=== PATIENT | male | born 1945 | race Caucasian/White ===

== ENCOUNTER 2016-03-24 08:49 | Emergency (ER) | payer OTHER ==
[2016-03-24 08:59] VITALS: BP 149/94; PULSE 97; TEMP 97.9; BMI 30.1
--- NOTE | 2016-03-24 10:33 | PDOC ---
History of Present Illness - General Chief Complaint: Foreign Body (FB) Stated Complaint: FOREIGN BODY IN RT EAR Time Seen by Provider: 03/24/16 09:25 History Source: Patient Exam Limitations: No Limitations - History of Present Illness Initial Comments: 03/24/16 10:29 Patient here with complaints of foreign body to his right ear. States uses Q- tips to clean and thinks may have a Q-tip and caught his ear. Denies fever, denies drainage Timing/Duration: unsure Severity: mild Associated Symptoms: reports: denies symptoms Past History - Travel Traveled outside of the country in the last 30 days: No Close contact w/someone who was outside of country & ill: No - Past Medical History Allergies/Adverse Reactions: Allergies Allergy/AdvReac Type Severity Reaction Status Date / Time penicillin G Allergy Intermediate Verified 03/24/16 08:59 Home Medications: Ambulatory Orders Quinapril HCl [Accupril -] 20 mg PO DAILY #7 tablet 06/15/13 Albuterol Sulfate Inhaler - [Ventolin HFA Inhaler -] 1 - 2 inh PO QID 08/03/14 Diltiazem Cd [Cardizem Cd -] 180 mg PO DAILY 08/03/14 Glipizide [Glipizide ER] 2.5 mg PO DAILY 08/03/14 Anemia: No Asthma: No Cancer: No Cardiac Disorders: No CVA: No COPD: Yes CHF: No Dementia: No Diabetes: No GI Disorders: No Disorders: No HTN: Yes Hypercholesterolemia: No Liver Disease: No Seizures: No Thyroid Disease: No - Surgical History Abdominal Surgery: No Appendectomy: No Cardiac Surgery: No Cholecystectomy: No Lung Surgery: No Orthopedic Surgery: No - Psycho/Social/Smoking Cessation Hx Anxiety: No Suicidal Ideation: No Smoking History: Current every day smoker Have you smoked in the past 12 months: Yes Number of Cigarettes Smoked Daily: 5 Information on smoking cessation initiated: No Hx Alcohol Use: Yes (4 BEERS A MONTH) Drug/Substance Use Hx: No Substance Use Type: Alcohol Hx Substance Use Treatment: No Review of Systems - Review of Systems Able to Perform ROS?: Yes Is the patient limited Nepali proficient: Yes Constitutional: Yes: See HPI. No: Symptoms Reported, Fever, Malaise HEENTM: Yes: Symptoms Reported, See HPI, Ear Pain (hearing loss ) Respiratory: Yes: See HPI. No: Symptoms reported All Other Systems: Reviewed and Negative *Physical Exam - Vital Signs Last Vital Signs Temp Pulse Resp BP Pulse Ox 97.9 F 97 H 16 149/94 95 03/24/16 08:55 03/24/16 08:55 03/24/16 08:55 03/24/16 08:55 03/24/16 08:55 - Physical Exam General Appearance: Yes: Nourished, Appropriately Dressed, Apparent Distress, Mild Distress HEENT: positive: AMIE. negative: TMs Normal (unable to visualize secondary to bilateral impaction of cerumen) Neck: positive: Supple. negative: Tender, Lymphadenopathy (R), Lymphadenopathy (L) Respiratory/Chest: positive: Lungs Clear, Normal Breath Sounds Cardiovascular: positive: Regular Rate Extremity: positive: Normal Capillary Refill, Normal Inspection Integumentary: positive: Normal Color, Dry, Warm Neurologic: positive: high school foreign language tutor II-XII NML intact, Fully Oriented, Alert, Normal Mood/ Affect, Normal Response, Motor Strength 5/5 Procedures - Additional Procedures Additional Procedures: lavage - initial (bilateral ears irrigated with warm saline with good results of large hard cerumen impaction withdrawal.) Medical Decision Making - Medical Decision Making 03/24/16 10:32 Ceruminosis, encourage patient to follow-up with ENT for definitive treatment and to avoid using Q-tips in ears *DC/Admit/Observation/Transfer Diagnosis at time of Disposition: Impacted cerumen of both ears - Discharge Dispostion Disposition: HOME Condition at time of disposition: Stable Admit: No - Referrals Referrals: Jayant Wells MD [Primary Care Provider] - Daniel James MD [Staff Physician] - - Patient Instructions Printed Discharge Instructions: Cerumen Impaction Additional Instructions: Do not use Q-tips, or any other small objects on the inner aspect of the ear canal - may only use Q-tips only on the outside to clean ears Ear wax may be packed by use of Q-tips to the inner canal and become hardened May use hydrogen peroxide 3 times a week to continued keep ear wax soft and able to expel Rinse in shower after hydrogen peroxide instillation to wash ear wax out Reae-lqx-veaznwh preparations also assist in wax buildup Aloe up with private physician or ear nose and throat doctor as needed
== END 2016-03-24 10:43 | disposition home or self-care (01) ==
LOC: JERFT 08:49
PROC: 3E1B78Z Irrigation of Ear using Irrigating Substance, Via Natural or Artificial Opening (ICD-10-PCS; principal; 2016-03-24)
PROC: 3E1B78Z Irrigation of Ear using Irrigating Substance, Via Natural or Artificial Opening (ICD-10-PCS; 2016-03-24)
DX: H61.23 Impacted cerumen, bilateral (principal); J44.9 Chronic obstructive pulmonary disease, unspecified; F17.210 Nicotine dependence, cigarettes, uncomplicated; I10 Essential (primary) hypertension
CPT/HCPCS: 69209; 99281-25

== ENCOUNTER 2016-11-22 13:57 | Observation (INO) | payer OTHER ==
--- NOTE | 2016-11-22 14:07 | PDOC ---
History of Present Illness - General Stated Complaint: ALCOHOL INTOXICATION Time Seen by Provider: 11/22/16 14:05 History Source: Patient - History of Present Illness Initial Comments: 11/22/16 14:43 HPI is obtained from EMS, patient's friend who was with him at time of incident and as well as staff at [facility] Patient is a 71 y.o. male who presents via EMS following an incident of unresponsiveness in a [employer] bar. As per patient he last recalls having a beer at the bar earlier today. As per patient's friend, patient was "off" today as of 10:30 a.m. - not as energetic or engaging conversation. Patient and patient's friend went to a bar when patient started to suddenly become incoherent, mumbling and grumbling and not responding. Patient then became unresponsive, slumping over in his chair and was unresponsive to gentle slapping and shaking. As per patient's friend and barrel builder, at no time did patient hit his head. Past History - Past Medical History Allergies/Adverse Reactions: Allergies Allergy/AdvReac Type Severity Reaction Status Date / Time penicillin G Allergy Intermediate Verified 03/24/16 08:59 Home Medications: Ambulatory Orders Quinapril HCl [Accupril -] 20 mg PO DAILY #7 tablet 06/15/13 Diltiazem Cd [Cardizem Cd -] 240 mg PO DAILY 08/03/14 Glipizide [Glipizide ER] 5 mg PO DAILY 08/03/14 Anemia: No Asthma: No Cancer: No Cardiac Disorders: No CVA: No COPD: Yes CHF: No Dementia: No Diabetes: No GI Disorders: No Disorders: No HTN: Yes Hypercholesterolemia: No Liver Disease: No Seizures: No Thyroid Disease: No - Surgical History Abdominal Surgery: No Appendectomy: No Cardiac Surgery: No Cholecystectomy: No Lung Surgery: No Orthopedic Surgery: No - Suicide/Smoking/Psychosocial Hx Smoking History: Current every day smoker Have you smoked in the past 12 months: Yes Number of Cigarettes Smoked Daily: 5 Hx Alcohol Use: Yes (4 BEERS A MONTH) Drug/Substance Use Hx: No Substance Use Type: Alcohol Hx Substance Use Treatment: No Review of Systems - Review of Systems Constitutional: Yes: Diaphoresis HEENTM: No: Blurred Vision, Double Vision Respiratory: No: Cough, Shortness of Breath Cardiac (ROS): No: Chest Pain, Edema, Irregular Heart Rate, Lightheadedness, Palpitations ABD/GI: No: Constipated, Diarrhea, Nausea, Vomiting : No: Burning, Dysuria *Physical Exam - Physical Exam General Appearance: Yes: Nourished, Appropriately Dressed HEENT: positive: EOMI, AMIE Neck: positive: Trachea midline, Supple Respiratory/Chest: positive: Lungs Clear, Normal Breath Sounds, Other (During course of admission, patient intermittently hypoxic to 88%, patient ) Cardiovascular: positive: Regular Rhythm, Regular Rate, S1, S2 Gastrointestinal/Abdominal: positive: Soft, Protuberent Musculoskeletal: positive: Normal Inspection Extremity: positive: Delayed Capillary Refill Integumentary: positive: Diaphoresis ED Treatment Course - LABORATORY CBC & Chemistry Diagram: 11/23/16 05:10 11/23/16 05:10 Medical Decision Making - Medical Decision Making 11/22/16 16:05 Patient is a 71 y.o. male with a h/o NIDDM on sulfonylureas (Glipizide) who presents with acute episode of hypoglycemia (BS 30's @ presentation). PLAN: 1. D50 x2 2. Encourage PO intake 11/22/16 18:16 Patient's BS dropped acutely to 21 during course of ED admission. Concern for sulfonyureas toxicity though patient denies non-adherence to medication and per HPI appears to have a full understanding of his medication regimen and understand the importance of glucose control. D50 x2 administered as well as Octeotride for possible Glipizide overdose. 11/22/16 17:29 Patient's BS 120's --> low 200's as per fingerstick. Patient to be admitted to obs under [employer] - confirmed with nursing lead refinery supervisor that patient will recieve BS checks Q2H. *DC/Admit/Observation/Transfer Diagnosis at time of Disposition: Hypoglycemia associated with diabetes - Discharge Dispostion Condition at time of disposition: Good Admit: Yes
[2016-11-22 14:31] LABS: BASOPHIL 0.8 % (0-2.0); EOSINOPHIL 1.3 % (0-4.5); MCH 28.7 pg (25.7-33.7); MCHC 31.9 g/dl (32.0-35.9); NEUTROPHILS 71.9 % (42.8-82.8); PLATELET COUNT 334 K/MM3 (134-434); RDW 15.1 % (11.9-15.9); WHITE BLOOD COUNT 17.1 K/mm3 (4.0-10.0)
[2016-11-22 14:59] LABS: ALBUMIN 3.3 g/dl (3.4-5.0); ALK PHOS 66 U/L (45-117); ANION GAP 10 (8-16); BILIRUBIN,TOTAL 0.2 mg/dL (0.2-1.0); CALCIUM 8.8 mg/dL (8.5-10.1); CO2 27 mmol/L (21-32); GLUCOSE,RANDOM 127 mg/dL (74-106); MAGNESIUM 2.4 mg/dL (1.8-2.4); SGOT/AST 21 U/L (15-37); SGPT/ALT 21 U/L (12-78); TOT PROT 6.8 g/dl (6.4-8.2)
[2016-11-22] MEDS ORDERED: DEXTROSE 50%-WATER 25 GM/50 ML DISP.SYRIN ONE (15:17)
[2016-11-22] MEDS ORDERED: OCTREOTIDE ACETATE 50 MCG/1 ML - 1 ML VIAL SQ ONE (15:20)
[2016-11-22] MEDS ORDERED: OCTREOTIDE ACETATE 100 MCG/1 ML ONE (15:24)
--- NOTE | 2016-11-22 16:51 | PDOC ---
Attending Attestation - Resident Resident Name: Carol Busch - ED Attending Attestation I have performed the following: I have examined & evaluated the patient, The case was reviewed & discussed with the resident, I agree w/resident's findings & plan, Exceptions are as noted - HPI HPI: 11/22/16 16:44 71-year-old male history of hypertension and mos-lwsaiqy-dvvephejn diabetes presents with altered mental status. Patient initially minimally responsive, fingerstick found to be 28. The patient was given 2 Amps of D50 and quickly woke up, responsive AOx3. Per friends at the bar, pt drank 2 beers and began becoming slow to respond and diaphoretic. He did not fall, and they supported him until EMS brought him to the ED. The patient reports that he takes glipizide and took his usual dose of 5 mg this morning. He also reports that he ate a romero egg and cheese per usual this morning. He denies any issues with hypoglycemia in the past. He denies fevers, chills, chest pain, shortness of breath, nausea, vomiting, diarrhea, abdominal pain, lower extremity edema, focal weakness or numbness, headache. - Physicial Exam PE: 11/22/16 17:28 GENERAL: Awake, alert, and fully oriented, in no acute distress, diaphoretic HEAD: No signs of trauma EYES: PERRLA, EOMI, sclera anicteric, conjunctiva clear ENT: Auricles normal inspection, hearing grossly normal, nares patent, oropharynx clear without exudates. Moist mucosa NECK: Normal ROM, supple, no lymphadenopathy, JVD, or masses LUNGS: Breath sounds equal, clear to auscultation bilaterally. No wheezes, and no crackles HEART: Regular rate and rhythm, normal S1 and S2, no murmurs, rubs or gallops ABDOMEN: Soft, nontender, normoactive bowel sounds. No guarding, no rebound. No masses EXTREMITIES: Normal range of motion, no edema. No clubbing or cyanosis. No cords, erythema, or tenderness BACK: No midline spinal tenderness in cervical/thoracic/lumbar region NEUROLOGICAL: Normal speech, cranial nerves intact, negative pronator drift, 5/ 5 strength in all 4 extremities, normal sensation to light touch in all 4 extremities, normal cerebellar exam, normal gait, normal reflexes and tone SKIN: Warm, Dry, normal turgor, no rashes or lesions noted. - Medical Decision Making 11/22/16 17:29 71yo M hx NIDDM on glipizide who presents with hypoglycemia despite eating breakfast this morning. Pt reports that he took his usual dose and ate his usual breakfast. He does admit to drinking a few beers at the bar. It is unclear why the patient is dropping his blood sugar despite taking his usual dose and eating, but it is possible in the setting of drinking at the bar that he may have accidentally taken an extra dose of his medication. Despite getting 2 amps of D50 on arrival, pt dropped his glucose to 21 after 1 hour. Pt ordered for another amp of D50, a D10 drip and 75mcg of SQ octreotide. -admit, consider ICU -labs -UA -CXR 11/22/16 17:13 Pt signed out to oncoming attending Dr. Samuel for further management
[2016-11-22] MEDS ORDERED: DEXTROSE 50%-WATER - 25 GM/50 ML VIAL IVPUSH ONE ×4 (18:47→18:56)
[2016-11-22] MEDS ORDERED: DEXTROSE 5%-NORMAL SALINE 500 ML IV ONE (18:58)
--- NOTE | 2016-11-22 20:18 | HP ---
Admitting History and Physical - Admission Chief Complaint: syncope History of Present Illness: 71 yo m with hx of htn, dm, hlp, copd, who presents to the ER after having episode of syncope in a bar. patient's states he was sitting at bar when he suddenly became diaphoretic and passed out. he reports that he passed out on the bar table and did not hit his head. EMS arrived and administered 2 amps of D50 after he was found to have a bgm of 21. He reports finally regaining his mentation in the ER. He reports he had an episode of low bgm this past at his doctors office but unsure how low it was. He was given sugar tablets and instructed to eat regularly by his PCP to avoid low sugars. At that time he did not pass out or become diaphoretic. He reports he has been taking glipizide 5mg for several months and has never passed out before. He reports before todays episode he was in his usual state of health. He denies any sob, cp, heart palps , numbness. he denies dysuria, n/v/d/f/c. He denies earache, sore throat, cough. He denies any heart trouble, or h/o stroke. social- drinks 2-3 x week, 2pack cig per week. denies rec drugs famhx- dad asthma. mom healthy psh/pmh- copd, htn, dm, hlp PCP- Dr collier at [facility] ros neg except for hpi Pex gen- in nad, alert, obese hent- at/nc, migdalia, neck supple, trachea midline, no tongue fasiculations resp- no cough, no cyanosis, no ronchi, lungs ctab cards- rrr, s1s2 heard, no jvd, no leg edema, no carotid bruits gi- protuberant abd, bs +, no guarding, no rigidity, no pulsatile mass musk- normal bue/ble, muscle strength 5/5 bue/ble neuro- cn2-12 grossly intact, no ftn ataxia, dysdiadochokinesia, no facial droop , speech clear skin- no erythema, no lesions psych- cooperative, no agitation prob list hypoglycemia syncope htn copd leukocytosis dm hypokalemia AMS imaging ekg- rbbb, nsr, a/p- 71 yo m with hx of htn, dm, hlp, copd, who presents to the ER after having episode of syncope in a bar and found to be hypoglycemic in the field. 1. syncope/ AMS, ? hypoglcyemia ddx: cva/tia, arrhythmia, acs found to be hypoglycemic in the field no neuro deficits on exam f/u cth, ekg, trops, tsh neuro checks orthostatic vitals cont D5 IV 2. dm, hypoglycemia found to have bgm 21, given 2amps of d50 in the field Given Octreotide 75mcg sq, and 4amps d50 IV in the ER will hold Glipizide cont D5 ns 83cc/hr IV monitor bgm 3. Leukocytosis ? infection v stress reaction Monitor CBC Fu urine cx Cxr appears clear by my eye 4. htn cont home meds 5. copd no ronchi on exam duonebs prn 6. 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, maxillary mucous thickening, no bleeding will consult neuro, cards add aspirin check lipids, a1c, homocysteine, echo add doxy for ?sinusitis given elevated wbc count History Source: Patient, Medical Record Limitations to Obtaining History: No Limitations - Smoking History Smoking history: Current every day smoker Have you smoked in the past 12 months: Yes Aproximately how many cigarettes per day: 5 - Alcohol/Substance Use Hx Alcohol Use: Yes (4 BEERS A MONTH) Home Medications - Allergies Allergies/Adverse Reactions: Allergies Allergy/AdvReac Type Severity Reaction Status Date / Time penicillin G Allergy Intermediate Verified 03/24/16 08:59 - Home Medications Home Medications: Ambulatory Orders Quinapril HCl [Accupril -] 20 mg PO DAILY #7 tablet 06/15/13 Diltiazem Cd [Cardizem Cd -] 240 mg PO DAILY 08/03/14 Glipizide [Glipizide ER] 5 mg PO DAILY 08/03/14 Physical Examination Vital Signs: Vital Signs Temperature 95.5 F L 11/22/16 14:00 Pulse Rate 86 11/22/16 18:58 Respiratory Rate 20 11/22/16 18:58 Blood Pressure 150/89 11/22/16 18:58 O2 Sat by Pulse Oximetry (%) 100 11/22/16 18:58 Visit type - Emergency Visit Emergency Visit: Yes ED Registration Date: 11/22/16 Care time: The patient presented to the Emergency Department on the above date and was hospitalized for further evaluation of their emergent condition. - New Patient This patient is new to me today: Yes Date on this admission: 11/23/16 - Critical Care Critical Care patient: No
[2016-11-22] MEDS ORDERED: ALBUTEROL SO4 2.5/IPRATROPIUM 0.5 INH SOL 3 ML VIAL.NEB. NEB PRN (20:38)
[2016-11-22] MEDS ORDERED: POTASSIUM CHLORIDE TABS 20 MEQ TABLET.ER (FP) PO ONE (20:39)
[2016-11-22 21:28] VITALS: BMI 29.9
[2016-11-22] MEDS: HEPARIN NA (PORCINE) 5,000 UNITS/ML 1ML VIAL SQ SCH (21:46)
[2016-11-22] MEDS: DEXTROSE 5%-0.45% SALINE 1,000 ML IV SCH (21:50)
[2016-11-23] MEDS ORDERED: ACETAMINOPHEN 325 MG TABLET (FP) PO PRN (03:03)
[2016-11-23] MEDS ORDERED: ONDANSETRON 4 MG/2 ML VIAL IVPB PRN (03:03)
[2016-11-23] MEDS: HEPARIN NA (PORCINE) 5,000 UNITS/ML 1ML VIAL SQ SCH ×3 (06:13→22:25)
[2016-11-23 07:04] LABS: ANION GAP 8 (8-16); CALCIUM 8.7 mg/dL (8.5-10.1); CO2 26 mmol/L (21-32); GLUCOSE,RANDOM 101 mg/dL (74-106)
[2016-11-23 07:10] LABS: ALK PHOS 65 U/L (45-117); BILIRUBIN,TOTAL 0.5 mg/dL (0.2-1.0); CHOLESTEROL 146 mg/dL (50-200); CREATININE 0.8 mg/dL (0.7-1.3); SGOT/AST 18 U/L (15-37); SGPT/ALT 19 U/L (12-78); TOT PROT 6.3 g/dl (6.4-8.2); TROPONIN I < 0.02 ng/ml (0.00-0.05)
[2016-11-23 07:23] LABS: BASOPHIL 0.6 % (0-2.0); EOSINOPHIL 2.7 % (0-4.5); MCH 29.2 pg (25.7-33.7); MCHC 32.4 g/dl (32.0-35.9); MEAN CELL VOLUME 89.9 fl (80-96); MEAN PLT VOLUME 9.3 fl (7.5-11.1); NEUTROPHILS 77.1 % (42.8-82.8); PLATELET COUNT 268 K/MM3 (134-434); RDW 15.6 % (11.9-15.9); WHITE BLOOD COUNT 10.6 K/mm3 (4.0-10.0)
[2016-11-23] MEDS: QUINAPRIL HCL 20 MG TABLET (FP) PO SCH (09:13)
[2016-11-23] MEDS: DOXYCYCLINE HYCLATE 100 MG CAPSULE PO SCH ×2 (09:13→17:37)
[2016-11-23] MEDS: ASPIRIN COATED 81 MG TABLET.EC PO SCH (09:13)
[2016-11-23] MEDS: DEXTROSE 5%-0.45% SALINE 1,000 ML IV SCH (09:15)
[2016-11-23 10:12] LABS: URINE APPEARANCE CLEAR; URINE BILIRUBIN NEGATIVE (NEGATIVE); URINE BLOOD NEGATIVE (NEGATIVE); URINE COLOR YELLOW; URINE GLUCOSE (UA) 1+ (NEGATIVE); URINE KETONE NEGATIVE (NEGATIVE); URINE NITRITE NEGATIVE (NEGATIVE); URINE PROTEIN NEGATIVE (NEGATIVE); URINE UROBILINOGEN NEGATIVE mg/dL (0.2-1.0)
--- NOTE | 2016-11-23 11:23 | CON.CARD ---
Cardiology Consult (text) - Consultation Consultation Note: Informed that he is a patient of Dr. Martin. Consult transferred over to his cardiology group.
[2016-11-23 15:12] LABS: URINE LEUK ESTERASE Negative (NEGATIVE)
--- NOTE | 2016-11-23 16:11 | EKG ---
Test Reason : Blood Pressure : / mmHG Vent. Rate : 073 BPM Atrial Rate : 073 BPM P-R Int : 200 ms QRS Dur : 150 ms QT Int : 440 ms P-R-T Axes : -03 -01 030 degrees QTc Int : 484 ms NORMAL SINUS RHYTHM BASELINE ARTIFACT RIGHT BUNDLE BRANCH BLOCK CANNOT RULE OUT INFERIOR INFARCT (CITED ON OR BEFORE 14-JUN-2013) ABNORMAL ECG WHEN COMPARED WITH ECG OF 14-JUN-2013 12:24, QRS AXIS SHIFTED RIGHT AND MAY REFLECT LEFT POSTERIOR HEMIBLOCK CLINICAL CORRELATION IS RECOMMENDED Confirmed by ANA BIGGS MD ([id number]) on 11/23/2016 4:10:52 PM Referred By: Confirmed By:ANA BIGGS MD
--- NOTE | 2016-11-23 16:12 | PN ---
Physical Exam: SUBJECTIVE: Patient seen and examined. He is feeling well today. He has never had a syncopal episode like this before. He denies regular alcohol use OBJECTIVE: Vital Signs Period Temp Pulse Resp BP Sys/Jay Pulse Ox Last 24 Hr 97.0 F-98.6 F 70-90 18-20 130-160/65-104 96-100 PE Neuro: alert, awake, cn 2-12intact Pulm: CTAB CV: s1 s2 rrr no mrg Abd: s nt nd +bs Ext: warm, no le edema Laboratory Results - last 24 hr 11/23/16 11/23/16 11/23/16 04:41 05:10 05:10 WBC 10.6 H D RBC 4.76 Hgb 13.9 Hct 42.7 MCV 89.9 MCH 29.2 MCHC 32.4 RDW 15.6 Plt Count 268 MPV 9.3 Neutrophils % 77.1 Lymphocytes % 10.6 D Monocytes % 9.0 Eosinophils % 2.7 D Basophils % 0.6 Sodium Potassium Chloride Carbon Dioxide Anion Gap BUN Creatinine Creat Clearance w eGFR POC Glucometer 118 Random Glucose Hemoglobin A1c % Lactic Acid 1.1 Calcium Total Bilirubin AST ALT Alkaline Phosphatase Troponin I Total Protein Albumin Triglycerides Cholesterol Total LDL Cholesterol HDL Cholesterol TSH Urine Color Urine Appearance Urine pH Ur Specific [place] Urine Protein Urine Glucose (UA) Urine Ketones Urine Blood Urine Nitrite Urine Bilirubin Urine Urobilinogen Ur Leukocyte Esterase 11/23/16 11/23/16 11/23/16 05:10 05:10 05:10 WBC RBC Hgb Hct MCV MCH MCHC RDW Plt Count MPV Neutrophils % Lymphocytes % Monocytes % Eosinophils % Basophils % Sodium 141 Potassium 4.5 D Chloride 107 Carbon Dioxide 26 Anion Gap 8 BUN 15 D Creatinine 0.8 Creat Clearance w eGFR > 60 POC Glucometer Random Glucose 101 D Hemoglobin A1c % Lactic Acid Calcium 8.7 Total Bilirubin 0.5 D AST 18 ALT 19 Alkaline Phosphatase 65 Troponin I < 0.02 Cancelled Total Protein 6.3 L Albumin 3.0 L Triglycerides 118 Cancelled Cholesterol 146 Cancelled Total LDL Cholesterol 78 Cancelled HDL Cholesterol 55 Cancelled TSH Urine Color Urine Appearance Urine pH Ur Specific [place] Urine Protein Urine Glucose (UA) Urine Ketones Urine Blood Urine Nitrite Urine Bilirubin Urine Urobilinogen Ur Leukocyte Esterase 11/22/16 11/23/16 20:45 05:10 Hemoglobin A1c % 5.7 TSH 0.27 L Active Medications Generic Name Dose Route Start Last Admin Trade Name Freq PRN Reason Stop Dose Admin Acetaminophen 650 mg 11/23/16 03:03 Tylenol - PO Q4H PRN FEVER OR PAIN Albuterol/Ipratropium 1 amp 11/22/16 20:38 Duoneb - NEB Q4H PRN SHORTNESS OF BREATH Aspirin 81 mg 11/23/16 10:00 11/23/16 09:13 Ecotrin - PO 81 mg DAILY JUAN A Administration Diltiazem HCl 240 mg 11/23/16 10:00 11/23/16 09:13 Cardizem Cd - PO 240 mg DAILY JUAN A Administration Doxycycline Hyclate 100 mg 11/23/16 10:00 11/23/16 09:13 Vibramycin - PO 11/29/16 23:59 100 mg BID@1000,1800 JUAN A Administration Heparin Sodium (Porcine) 5,000 unit 11/22/16 22:00 11/23/16 14:16 Heparin - SQ Not Given TID JUAN A Dextrose/Sodium Chloride 1,000 mls @ 83 mls/hr 11/22/16 20:45 11/23/16 09:15 D5-1/2ns - IV 83 mls/hr ASDIR JUAN A Administration Ondansetron HCl 4 mg 11/23/16 03:03 Zofran Injection IVPB Q8H PRN NAUSEA Quinapril HCl 20 mg 11/23/16 10:00 11/23/16 09:13 Accupril - PO 20 mg DAILY JUAN A Administration Assessment: 71 year old male with hx of HTN, DM II, COPD, who presents to the ER after having episode of syncope in a bar and found to be hypoglycemic 1. Syncope - Likely due to hypoglycemia d/t medication increase - ECHO in am - Cardiology to see - Neuro consulted 2. Hypoglycemia - Resolved - Stop fluids - Would resume glipizide at 2.5mg dose, hold for now 3. Leukocytosis - Possible infection v stress reaction - WBC down trending - Urine cx pending 4. HTN - Continue Quinapril 20mg - Continue Diltiazem HCl 240mg daily 5. Sinususitis - Mild-mod on CT - Continue Doxy Visit type - Emergency Visit Emergency Visit: Yes ED Registration Date: 11/22/16 Care time: The patient presented to the Emergency Department on the above date and was hospitalized for further evaluation of their emergent condition. - New Patient This patient is new to me today: Yes Date on this admission: 11/25/16 - Critical Care Critical Care patient: No
[2016-11-24] MEDS: HEPARIN NA (PORCINE) 5,000 UNITS/ML 1ML VIAL SQ SCH ×3 (05:05→21:41)
[2016-11-24 06:48] LABS: EOSINOPHIL 5.8 % (0-4.5); MCHC 32.2 g/dl (32.0-35.9); MEAN CELL VOLUME 89.9 fl (80-96); MEAN PLT VOLUME 9.5 fl (7.5-11.1); NEUTROPHILS 58.8 % (42.8-82.8); PLATELET COUNT 247 K/MM3 (134-434); RDW 15.2 % (11.9-15.9); WHITE BLOOD COUNT 7.9 K/mm3 (4.0-10.0)
[2016-11-24] MEDS: QUINAPRIL HCL 20 MG TABLET (FP) PO SCH (09:24)
[2016-11-24] MEDS: ASPIRIN COATED 81 MG TABLET.EC PO SCH (09:25)
[2016-11-24] MEDS: DOXYCYCLINE HYCLATE 100 MG CAPSULE PO SCH ×2 (09:25→17:48)
--- NOTE | 2016-11-24 10:55 | CON.CARD ---
Consult Consult Specialty:: Cardiology Referred by:: Hospitalist service Reason for Consultation:: Cardiac evaluation - History of Present Illness Chief Complaint: Syncope History of Present Illness: Patient is a 71 year old male previously seen by me in the office with underlying history of type 2 diabetes mellitus and hypertension who presents after a syncopal episode. He states that his diabetes medication was increased recently and this time he was at a bar drinking beer when he passed out and was found to be hypoglycemic. He denies chest pain, shortness of breath or palpitations. He denies paroxysmal nocturnal dyspnea or orthopnea. He denies fever or chills. She denies headache or lightheadedness. He denies prior syncope. Cardiology consultation was called for further evaluation. - History Source History Provided By: Patient Limitations to Obtaining History: No Limitations - Past Medical History Cardio/Vascular: Yes: HTN Endocrine: Yes: Diabetes Mellitus - Past Surgical History Past Surgical History: Yes: None - Alcohol/Substance Use Hx Alcohol Use: Yes (4 BEERS A MONTH) - Smoking History Smoking history: Current every day smoker Have you smoked in the past 12 months: Yes Aproximately how many cigarettes per day: 5 Home Medications - Allergies Allergies/Adverse Reactions: Allergies Allergy/AdvReac Type Severity Reaction Status Date / Time penicillin G Allergy Intermediate Verified 03/24/16 08:59 - Home Medications Home Medications: Ambulatory Orders Quinapril HCl [Accupril -] 20 mg PO DAILY #7 tablet 06/15/13 Diltiazem Cd [Cardizem Cd -] 240 mg PO DAILY 08/03/14 Glipizide [Glipizide ER] 5 mg PO DAILY 08/03/14 Family Disease History - Family Disease History Other Family History: History of HTN Review of Systems - Review of Systems Constitutional: denies: Chills, Fever Cardiovascular: denies: Chest Pain, Palpitations, Shortness of Breath Respiratory: denies: Cough, Hemoptysis, Orthopnea, PND, Snoring, SOB, SOB on Exertion Gastrointestinal: denies: Abdominal Pain, Constipation, Diarrhea, Melena, Nausea , Rectal Bleeding, Vomiting Neurological: denies: Dizziness, Headache, Seizure, Syncope Vital Signs: Vital Signs Temperature 98 F 11/24/16 09:00 Pulse Rate 64 11/24/16 09:00 Respiratory Rate 18 11/24/16 09:00 Blood Pressure 162/100 11/24/16 09:00 O2 Sat by Pulse Oximetry (%) 96 11/24/16 09:00 Neck: Yes: Supple Respiratory: Yes: Regular, CTA Bilaterally Gastrointestinal: Yes: Normal Bowel Sounds, Soft. No: Tenderness Cardiovascular: Yes: Regular Rate and Rhythm JVD: No Carotid Bruit: No PMI: Non-Displaced Heart Sounds: Yes: S1, S2 Murmur: No: Systolic Murmur, Diastolic Murmur Edema: No - Other Data Labs, Other Data: CBC, BMP 11/24/16 06:20 11/23/16 05:10 Laboratory Results - last 24 hr 11/23/16 11/23/16 11/23/16 06:00 11:22 17:40 WBC RBC Hgb Hct MCV MCH MCHC RDW Plt Count MPV Neutrophils % Lymphocytes % Monocytes % Eosinophils % Basophils % POC Glucometer 112 130 Urine Color Yellow Urine Appearance Clear Urine pH 5.0 Ur Specific [place] 1.020 Urine Protein Negative Urine Glucose (UA) 1+ H Urine Ketones Negative Urine Blood Negative Urine Nitrite Negative Urine Bilirubin Negative Urine Urobilinogen Negative Ur Leukocyte Esterase Negative 11/24/16 06:20 WBC 7.9 RBC 4.66 Hgb 13.5 Hct 41.9 MCV 89.9 MCH 29.0 MCHC 32.2 RDW 15.2 Plt Count 247 MPV 9.5 Neutrophils % 58.8 D Lymphocytes % 24.5 D Monocytes % 9.9 Eosinophils % 5.8 H D Basophils % 1.0 POC Glucometer Urine Color Urine Appearance Urine pH Ur Specific [place] Urine Protein Urine Glucose (UA) Urine Ketones Urine Blood Urine Nitrite Urine Bilirubin Urine Urobilinogen Ur Leukocyte Esterase Sinus rhythm with RBBB Echo: Pending Problem List - Problems (1) Hypoglycemia associated with diabetes Code(s): E11.649 - TYPE 2 DIABETES MELLITUS WITH HYPOGLYCEMIA WITHOUT COMA (2) Syncope Code(s): R55 - SYNCOPE AND COLLAPSE Qualifiers: Syncope type: unspecified Qualified Code(s): R55 - Syncope and collapse; R55 - Syncope and collapse (3) HTN (hypertension) Code(s): I10 - ESSENTIAL (PRIMARY) HYPERTENSION Qualifiers: Hypertension type: essential hypertension Qualified Code(s): I10 - Essential (primary) hypertension; I10 - Essential (primary) hypertension; I10 - Essential (primary) hypertension Assessment/Plan 1. Syncope likely due to hypoglycemia 2. History of hypertension 3. Type 2 diabetes mellitus PLAN: 1. Continue current medications including Quinapril and Cardizem 2. Continue ASA 3. Transthoracic echocardiography to assess LV/RV and valvular function 4. Continue titrate diabetic regimen to avoid hypoglycemia 5. With history of smoking and his age, consider aortic ultrasound to rule out aortic aneurysm Further plans are to follow Keshav Martin MD
--- NOTE | 2016-11-24 16:48 | PN ---
Progress Note (short form) - Note Progress Note: Subjective: The patient was seen and examined at the bedside, he reports feeling better today. Awaiting carotid and aorta ultrasound Current Medications Generic Name Dose Route Start Last Admin Trade Name Cathie PRN Reason Stop Dose Admin Acetaminophen 650 mg 11/23/16 03:03 Tylenol - PO Q4H PRN FEVER OR PAIN Albuterol/Ipratropium 1 amp 11/22/16 20:38 Duoneb - NEB Q4H PRN SHORTNESS OF BREATH Aspirin 81 mg 11/23/16 10:00 11/24/16 09:25 Ecotrin - PO 81 mg DAILY JUAN A Administration Diltiazem HCl 240 mg 11/23/16 10:00 11/24/16 09:25 Cardizem Cd - PO 240 mg DAILY JUAN A Administration Doxycycline Hyclate 100 mg 11/23/16 10:00 11/24/16 09:25 Vibramycin - PO 11/29/16 23:59 100 mg BID@1000,1800 JUAN A Administration Heparin Sodium (Porcine) 5,000 unit 11/22/16 22:00 11/24/16 13:06 Heparin - SQ 5,000 unit TID JUAN A Administration Ondansetron HCl 4 mg 11/23/16 03:03 Zofran Injection IVPB Q8H PRN NAUSEA Quinapril HCl 20 mg 11/23/16 10:00 11/24/16 09:24 Accupril - PO 20 mg DAILY JUAN A Administration Objective: Vital Signs Period Temp Pulse Resp BP Sys/Jay Pulse Ox Last 24 Hr 97.5 F-98.9 F 62-80 18-20 139-162/75-100 95-96 Physical Exam: General: NAD, A&Ox3 Lungs: CTA bilaterally Heart: RRR, S1S2 Abd: Soft, non-tender, non-distended. Normoactive bowel sounds Ext: Warm, well-perfused. 2+ DP/PT bilaterally CBCD WBC 7.9 K/mm3 (4.0-10.0) 11/24/16 06:20 RBC 4.66 M/mm3 (4.00-5.60) 11/24/16 06:20 Hgb 13.5 GM/dL (11.7-16.9) 11/24/16 06:20 Hct 41.9 % (35.4-49) 11/24/16 06:20 MCV 89.9 fl (80-96) 11/24/16 06:20 MCHC 32.2 g/dl (32.0-35.9) 11/24/16 06:20 RDW 15.2 % (11.9-15.9) 11/24/16 06:20 Plt Count 247 K/MM3 (134-434) 11/24/16 06:20 MPV 9.5 fl (7.5-11.1) 11/24/16 06:20 CMP Sodium 141 mmol/L (136-145) 11/23/16 05:10 Potassium 4.5 mmol/L (3.5-5.1) D 11/23/16 05:10 Chloride 107 mmol/L (98-107) 11/23/16 05:10 Carbon Dioxide 26 mmol/L (21-32) 11/23/16 05:10 Anion Gap 8 (8-16) 11/23/16 05:10 BUN 15 mg/dL (7-18) D 11/23/16 05:10 Creatinine 0.8 mg/dL (0.7-1.3) 11/23/16 05:10 Creat Clearance w eGFR > 60 (>60) 11/23/16 05:10 Random Glucose 101 mg/dL (74-106) D 11/23/16 05:10 Calcium 8.7 mg/dL (8.5-10.1) 11/23/16 05:10 Total Bilirubin 0.5 mg/dL (0.2-1.0) D 11/23/16 05:10 AST 18 U/L (15-37) 11/23/16 05:10 ALT 19 U/L (12-78) 11/23/16 05:10 Alkaline Phosphatase 65 U/L (45-117) 11/23/16 05:10 Total Protein 6.3 g/dl (6.4-8.2) L 11/23/16 05:10 Albumin 3.0 g/dl (3.4-5.0) L 11/23/16 05:10 CARDIAC ENZYMES Troponin I < 0.02 ng/ml (0.00-0.05) 11/23/16 05:10 Microbiology 11/23/16 06:00 Urine - Urine Clean Catch Urine Culture - Final Assessment: This is a 71 year old male with PMHx of HTN, DMII, COPD, who presented to the ED with syncope and found to have hypoglycemia Plan: 1) Prolonged syncope: - Patient remembers being at bar then here in the hospital - Prolonged arrhythmia vs. seizure, vs. severe hypoglycemia vs. other metabolic abnormality - Patient reports vague prodrome with diaphoresis. Likely 2/2 severe hypoglycemia from recent increase in Glipizide - Hold all oral hypoglycemic agents - Hgb A1c 5.7 - ECHO reviewed - F/u carotid ultrasound - Discussed in depth with Dr. Farah. Given prolonged syncope with vague prodrome, likely syncope from severe hypoglycemia 2) HTN: - Continue Quinapril 20mg - Continue Diltiazem HCl 240mg daily - F/u aorta ultrasound to r/o aneurysm given smoking hx and age 3) Mucosal thickening of left maxillary sinus and ethmoid - Continue Doxy for now - WBC trending down 4) F/E/N: - Diabetic, low sodium diet - Monitor electrolytes 5) Prophylaxis: - OOB ambulating - Heparin 5,000u sq tid 6) Dispo: - Needs aorta ultrasound in which he needs to be NPO for it. Will get it tomorrow morning. NPO after midnight CODE STATUS: FULL CODE Visit type - Emergency Visit Emergency Visit: Yes ED Registration Date: 11/22/16 Care time: The patient presented to the Emergency Department on the above date and was hospitalized for further evaluation of their emergent condition. - New Patient This patient is new to me today: Yes Date on this admission: 11/24/16 - Critical Care Critical Care patient: No
--- NOTE | 2016-11-24 18:30 | CONSULT ---
Consult - text type - Consultation Consultation Note: NEUROLOGY CONSULTATION is greatly appreciated: This 71 yo tony with h/o HTN and diabetes is maintained on Quinipril , glipizide and diltiazem. He relates that glipizide was increased from 2.5 to 5.0 about 3 weeks ago. Last week he had a dizzy spell and noted a Blood glucose of 32 mg %. Yesterday he was drinking beer with a friend when he complained of feeling unwell. Then, he became profusely diaphoretic and lost consciousness. No witnessed seizure. Prolonged LOC as patient Woke up in ER (estimated > 15-20 mins). 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 DANDRE: No bruits, Cor reg. NEURO: MS/speech: normal CN: II-XII: Normal without nystagmus Motor: No drift or tremor. Normal strength, tone, bulk and reflexes. Toes downgoing Coord: Normal Sensory: Normal. Romberg neg Gait: Normal. Sl difficuly with tandem. IMP: Non-focal Neurological exam. Prolonged syncope-most likely due to hy[poglycemia. SUGGEST: Decrease glipizide or restructure hypoglycemic regimen. MRI of brain to investigate the actual degree of microvascular disease and atrophy (can be done as out patient). EEG to r/o seizure (can be done as out patient). Continue telemetry and w/u as per cardiology (to r/o arrhythmia) Thank you very much, Valeriy Farah MD
[2016-11-25] MEDS: HEPARIN NA (PORCINE) 5,000 UNITS/ML 1ML VIAL SQ SCH (06:21)
[2016-11-25 08:39] VITALS: BP 151/94; PULSE 72; TEMP 97.8
--- NOTE | 2016-11-25 09:50 | DS ---
Physical Exam: SUBJECTIVE: Patient seen and examined OBJECTIVE: Vital Signs Period Temp Pulse Resp BP Sys/Jay Pulse Ox Last 24 Hr 97.8 F-98.9 F 64-74 19-20 142-157/72-97 96-96 PE Neuro: alert, awake, cn 2-12intact Pulm: CTAB CV: s1 s2 rrr no mrg Abd: s nt nd +bs Ext: warm, no le edema Laboratory Results - last 24 hr 11/24/16 11/24/16 11/24/16 11:40 15:40 23:35 POC Glucometer 114 111 112 11/25/16 06:25 POC Glucometer 99 HOSPITAL COURSE: Date of Admission:11/22/16 Date of Discharge: 11/25/16 Minutes to complete discharge: 37 Discharge Summary Reason For Visit: N/C HYPOGLYCEMIA Current Active Problems HTN (hypertension) (Acute) Hypoglycemia associated with diabetes (Acute) Syncope (Acute) Hospital Course: Initial Hospital Course: Briefly, this 71 year old male with pmhx of DM II and HTN, after a syncopal episode. Patient was at bar with a friend when he became diaphoretic and passed out. he does not remember awaking until in hospital. BGM was found to be 28 and he was given 2amps D50. Recently, his glipizide was increased recently from 2.5 to 5mg Subsequent Hospital Course/Progress Note/Discharge Summary: Assessment: 71 year old male with PMHx of HTN, DMII, COPD admitted s/p syncope and found to have severe hypoglycemia Plan: 1. Prolonged syncope - Prolonged arrhythmia vs. seizure, vs. severe hypoglycemia - Likely 2/2 severe hypoglycemia from recent increase in Glipizide - Hold all oral hypoglycemic agents until pcp follow up - Hgb A1c 5.7 - ECHO with nml LVSF 2. HTN - Quinapril 20mg - Diltiazem HCl 240mg daily - Aortic US shows mild infrarenal aortic aneurysm 3. Mucosal thickening of left maxillary sinus and ethmoid - Continue Doxy 200mg daily x 5 days total Dispo: - Home with above plan and medications, stop glipizide - Pt aware and agrees to above plan, he is to follow up with pcp and cardiology Condition: Stable - Instructions Diet, Activity, Other Instructions: Please return to the ED for any new, persistent, or worsening symptoms. Follow up with your PCP in 1 week, currently you are scheduled for appt on 01/19 @10am. Take antibiotics for 3 more days Continue home medication as directed Follow up with Dr. Martin in office for review of your aorta ultra sound Referrals: Keshav Martin MD [Staff Physician] - Disposition: HOME - Home Medications Comprehensive Discharge Medication List: Ambulatory Orders Quinapril HCl [Accupril -] 20 mg PO DAILY #7 tablet 06/15/13 Diltiazem Cd [Cardizem Cd -] 240 mg PO DAILY 08/03/14 Doxycycline Hyclate 200 mg PO DAILY #3 tablet. 11/25/16 This patient is new to me today: No Emergency Visit: Yes ED Registration Date: 11/22/16 Care time: The patient presented to the Emergency Department on the above date and was hospitalized for further evaluation of their emergent condition. Critical Care patient: No - Discharge Referral Referred to [facility] No
[2016-11-25] MEDS ORDERED: PT OWN MED DRAWER 7, Y5N ONE (09:52)
[2016-11-25] MEDS: ASPIRIN COATED 81 MG TABLET.EC PO SCH (09:55)
[2016-11-25] MEDS: QUINAPRIL HCL 20 MG TABLET (FP) PO SCH (09:55)
[2016-11-25] MEDS: DOXYCYCLINE HYCLATE 100 MG CAPSULE PO SCH (09:55)
--- NOTE | 2016-11-25 10:18 | PN ---
Progress Note, Physician Chief Complaint: Not in distress History of Present Illness: Patient was seen and examined. Awake and alert. Chart was reviewed Denies chest pain, SOB or palpitations - Current Medication List Current Medications: Active Medications Acetaminophen (Tylenol -) 650 mg PO Q4H PRN PRN Reason: FEVER OR PAIN Albuterol/Ipratropium (Duoneb -) 1 amp NEB Q4H PRN PRN Reason: SHORTNESS OF BREATH Aspirin (Ecotrin -) 81 mg PO DAILY [facility] Last Admin: 11/25/16 09:55 Dose: 81 mg Diltiazem HCl (Cardizem Cd -) 240 mg PO DAILY [facility] Last Admin: 11/25/16 09:54 Dose: 240 mg Doxycycline Hyclate (Vibramycin -) 100 mg PO BID@1000,1800 [facility] Stop: 11/29/16 23:59 Last Admin: 11/25/16 09:55 Dose: 100 mg Heparin Sodium (Porcine) (Heparin -) 5,000 unit SQ TID [facility] Last Admin: 11/25/16 06:21 Dose: 5,000 unit Ondansetron HCl (Zofran Injection) 4 mg IVPB Q8H PRN PRN Reason: NAUSEA Quinapril HCl (Accupril -) 20 mg PO DAILY [facility] Last Admin: 11/25/16 09:55 Dose: 20 mg - Objective Vital Signs: Vital Signs Temperature 97.8 F 11/25/16 08:38 Pulse Rate 72 11/25/16 08:38 Respiratory Rate 20 11/25/16 08:38 Blood Pressure 151/94 11/25/16 08:38 O2 Sat by Pulse Oximetry (%) 96 11/24/16 22:00 Neck: Yes: Supple Cardiovascular: Yes: Regular Rate and Rhythm, S1, S2 Respiratory: Yes: CTA Bilaterally Gastrointestinal: Yes: Normal Bowel Sounds, Soft. No: Tenderness Edema: No Additional Findings/Remarks: - Review of Systems Constitutional: denies: Chills, Fever Cardiovascular: denies: Chest Pain, Palpitations, Shortness of Breath Respiratory: denies: Cough, Hemoptysis, Orthopnea, PND, Snoring, SOB, SOB on Exertion Gastrointestinal: denies: Abdominal Pain, Constipation, Diarrhea, Melena, Nausea , Rectal Bleeding, Vomiting Neurological: denies: Dizziness, Headache, Seizure, Syncope Labs: CBC, BMP 11/24/16 06:20 11/23/16 05:10 Problem List - Problems (1) Hypoglycemia associated with diabetes Code(s): E11.649 - TYPE 2 DIABETES MELLITUS WITH HYPOGLYCEMIA WITHOUT COMA (2) Syncope Code(s): R55 - SYNCOPE AND COLLAPSE Qualifiers: Syncope type: unspecified Qualified Code(s): R55 - Syncope and collapse; R55 - Syncope and collapse (3) HTN (hypertension) Code(s): I10 - ESSENTIAL (PRIMARY) HYPERTENSION Qualifiers: Hypertension type: essential hypertension Qualified Code(s): I10 - Essential (primary) hypertension; I10 - Essential (primary) hypertension; I10 - Essential (primary) hypertension Assessment/Plan 1. Syncope likely due to hypoglycemia 2. History of hypertension 3. Type 2 diabetes mellitus PLAN: 1. Continue current medications including Quinapril and Cardizem 2. Continue ASA 3. Transthoracic echocardiography revealed normal LV systolic function 4. Continue titrate diabetic regimen to avoid hypoglycemia 5. Abdominal US reveals mild infrarenal aortic aneurysm Further plans are to follow. Discharge home and follow up in the office Keshav Martin MD
== END 2016-11-25 10:29 | disposition home or self-care (01) ==
LOC: JER 13:57 → JERBED 18:02 → J4W 19:32
PROVIDERS: ADMIT Internal Medicine; ATTEND Nurse Practitioner Acute Care
PROC: 3E033GC Introduction of Other Therapeutic Substance into Peripheral Vein, Percutaneous Approach (ICD-10-PCS; principal; 2016-11-22)
PROC: 3E0337Z Introduction of Electrolytic and Water Balance Substance into Peripheral Vein, Percutaneous Approach (ICD-10-PCS; 2016-11-22)
PROC: 3E013GC Introduction of Other Therapeutic Substance into Subcutaneous Tissue, Percutaneous Approach (ICD-10-PCS; 2016-11-22)
DX: E11.649 Type 2 diabetes mellitus with hypoglycemia without coma (principal); R55 Syncope and collapse; Z79.84 Long term (current) use of oral hypoglycemic drugs; F17.210 Nicotine dependence, cigarettes, uncomplicated; Z88.0 Allergy status to penicillin; I10 Essential (primary) hypertension; D72.829 Elevated white blood cell count, unspecified; E87.6 Hypokalemia; J44.9 Chronic obstructive pulmonary disease, unspecified; J32.9 Chronic sinusitis, unspecified
CPT/HCPCS: 36415; 70450-TC; 71020-TC; 76775-TC; 80053; 80061; 81003; 82136; 83036; 83605; 83721; 83735; 83918; 84443; 84484; 85025; 87086; 93005; 93010; 93306-TC; 93880-TC; 96361; 96372; 96374; 96375; 99283-25; G0378; J1644

== ENCOUNTER 2018-06-13 05:34 | Emergency (ER) | payer OTHER ==
[2018-06-13 05:45] VITALS: BMI 32.8
--- NOTE | 2018-06-13 07:23 | PDOC ---
Attending Attestation - Resident Resident Name: Yanely Currie - ED Attending Attestation I have performed the following: I have examined & evaluated the patient, The case was reviewed & discussed with the resident, I agree w/resident's findings & plan, Exceptions are as noted - HPI HPI: 73 yo M HTN, COPD, BPH presents with groin pain, dysuria, urinary retention, urge to urinate since last night. No prior similar symptoms. Denies fever. + Prior UTI. - Physicial Exam PE: GENERAL: Awake, alert, and fully oriented. Appears uncomfortable. HEAD: No signs of trauma EYES: PERRLA, EOMI, sclera anicteric, conjunctiva clear ENT: Auricles normal inspection, hearing grossly normal, nares patent, oropharynx clear without exudates. Moist mucosa NECK: Normal ROM, supple, no lymphadenopathy, JVD, or masses LUNGS: Breath sounds equal, clear to auscultation bilaterally. No wheezes, and no crackles HEART: Regular rate and rhythm, normal S1 and S2, no murmurs, rubs or gallops ABDOMEN: Soft, +suprapubic tenderness, bladder distension, normoactive bowel sounds. No guarding, no rebound. No masses EXTREMITIES: Normal range of motion, no edema. No clubbing or cyanosis. No cords, erythema, or tenderness NEUROLOGICAL: Cranial nerves II through XII grossly intact. Normal speech, normal gait. Motor and sensation intact SKIN: Warm, Dry, normal turgor, no rashes or lesions noted. - Medical Decision Making Pt presents with urinary retention, distension noted on initial exam. Reports relief with vick catheter. Will check labs for renal function, as well as UA to r/o infection.
--- NOTE | 2018-06-13 07:38 | PDOC ---
History of Present Illness - General Chief Complaint: Pain, Acute Stated Complaint: GROIN PAIN Time Seen by Provider: 06/13/18 07:19 History Source: Patient Exam Limitations: No Limitations - History of Present Illness Initial Comments: 06/13/18 07:33 73 y/o male with PMH of HTN, COPD, BPH presents to the ED with complaints of sudden onset groin pain and trouble urinating. He had gone out with his frineds last night and had around 6 beers and he got home was watching TV when all of the sudden he started having pains in his right groin area shooting across his suprapubic region. He states that he attempted to go to the bathroom however nothing would not go out. He denies having any systemic symptoms; no fevers/ chills/nausea or vomiting. Of note, he started taking Tamsulosin about one month ago for BPH and his symptoms have been improving. This has never happened to him before. He states the pain was about a 2/10 before he arrived and when he arrived it was around a 4/10. He denies any CP/SOB/N/V fevres or chills. his last bowel movement was this morning and it was normal. 06/13/18 07:47 Timing/Duration: 4-6 hours Severity: moderate Associated Symptoms: denies: chest pain, nausea/vomiting Past History - Travel Traveled outside of the country in the last 30 days: No Close contact w/someone who was outside of country & ill: No - Past Medical History Allergies/Adverse Reactions: Allergies Allergy/AdvReac Type Severity Reaction Status Date / Time penicillin G Allergy Intermediate Verified 06/13/18 05:42 Home Medications: Ambulatory Orders Quinapril HCl [Accupril -] 20 mg PO DAILY #7 tablet 06/15/13 Diltiazem Cd [Cardizem Cd -] 240 mg PO DAILY 08/03/14 Doxycycline Hyclate 200 mg PO DAILY #3 tablet. 11/25/16 Anemia: No Asthma: No Cancer: No Cardiac Disorders: No CVA: No COPD: Yes CHF: No Dementia: No Diabetes: No GI Disorders: No Disorders: No HTN: Yes Hypercholesterolemia: No Liver Disease: No Seizures: No Thyroid Disease: No - Surgical History Abdominal Surgery: No Appendectomy: No Cardiac Surgery: No Cholecystectomy: No Lung Surgery: No Orthopedic Surgery: No - Family Disease History Family Disease History: Diabetes: Father, Heart Disease: Mother - Suicide/Smoking/Psychosocial Hx Smoking History: Never smoked Have you smoked in the past 12 months: No Number of Cigarettes Smoked Daily: 5 Information on smoking cessation initiated: No 'Breaking Loose' booklet given: 11/22/16 Hx Alcohol Use: No Drug/Substance Use Hx: No Substance Use Type: Alcohol Hx Substance Use Treatment: No Review of Systems - Review of Systems Able to Perform ROS?: Yes Is the patient limited Hebrew proficient: No Constitutional: No: Fever HEENTM: No: Blurred Vision Respiratory: No: Shortness of Breath Cardiac (ROS): No: Chest Pain, Palpitations : Yes: Testicular Pain, Other (unable to urinate). No: Burning Musculoskeletal: No: Back Pain Neurological: No: Headache, Numbness *Physical Exam - Vital Signs Last Vital Signs Temp Pulse Resp BP Pulse Ox 98.8 F 117 H 22 H 199/104 H 96 06/13/18 05:39 06/13/18 05:39 06/13/18 05:39 06/13/18 05:39 06/13/18 05:39 - Physical Exam General Appearance: Yes: Mild Distress Neck: positive: Normal Thyroid Respiratory/Chest: positive: Lungs Clear, Normal Breath Sounds Cardiovascular: positive: Regular Rhythm, Regular Rate, S1, S2 Gastrointestinal/Abdominal: positive: Distended, Other (suprapubic tenderness) Male Genitalia: positive: testicular tenderness (slight right testicular tenderness). negative: testicular mass, CVAT Musculoskeletal: negative: CVA Tenderness Neurologic: positive: Fully Oriented, Alert ED Treatment Course - LABORATORY CBC & Chemistry Diagram: 06/13/18 08:12 06/13/18 08:12 - RADIOLOGY Radiology Studies Ordered: Category Date Time Status KIDNEY / RENAL US [US] Stat Ultrasound 06/13/18 07:31 Ordered Medical Decision Making - Medical Decision Making 06/13/18 07:55 cbc/cmp/renal/US vick insert patient improved with vick however no evidence of UTI patient going for CT scan 06/13/18 11:38 *DC/Admit/Observation/Transfer Diagnosis at time of Disposition: BPH (benign prostatic hyperplasia), Urinary problem - Discharge Dispostion Disposition: HOME Condition at time of disposition: Fair - Referrals - Patient Instructions Printed Discharge Instructions: How to Care for Your Vick Catheter -- Male Additional Instructions: Please follow up with your primary care physician within one week We are referring you to a urologist, Dr. See Juan, to follow up with within one week Please keep your vick catheter in place and do not remove it until you see the urologist if you have any worsening or concerning symptom please return to the emergency room immediately - Post Discharge Activity - Attestations Physician Attestion: 06/13/18 12:21 Yanely Currie
[2018-06-13 08:30] LABS: BASO % 0.7 % (0-2.0); EOS % 0.1 % (0-4.5); HEMATOCRIT 45.4 % (35.4-49); HEMOGLOBIN 14.9 GM/dL (11.7-16.9); LYMPH % 5.5 % (8-40); MCH 29.4 pg (25.7-33.7); MCHC 32.9 g/dl (32.0-35.9); MEAN CELL VOLUME 89.4 fl (80-96); MEAN PLT VOLUME 9.1 fl (7.5-11.1); MONO % 5.5 % (3.8-10.2); NEUT % 88.2 % (42.8-82.8); PLATELET COUNT 301 K/MM3 (134-434); RBC 5.08 M/mm3 (4.00-5.60); RDW 14.9 % (11.9-15.9); WHITE BLOOD COUNT 17.3 K/mm3 (4.0-10.0)
[2018-06-13 09:01] LABS: ALBUMIN 4.2 g/dl (3.4-5.0); ALK PHOS 137 U/L (45-117); ANION GAP 11 MMOL/L (8-16); BILIRUBIN,TOTAL 0.9 mg/dL (0.2-1); BLOOD UREA NITROGEN 15 mg/dL (7-18); CALCIUM 9.1 mg/dL (8.5-10.1); CHLORIDE 101 mmol/L (98-107); CO2 21 mmol/L (21-32); CREATININE 0.9 mg/dL (0.55-1.3); GLUCOSE,RANDOM 80 mg/dL (74-106); POTASSIUM 4.3 mmol/L (3.5-5.1); SGOT/AST 38 U/L (15-37); SGPT/ALT 30 U/L (13-61); SODIUM 133 mmol/L (136-145); TOT PROT 7.8 g/dl (6.4-8.2)
[2018-06-13 09:38] LABS: EPI CELLS 0.2 /HPF (0-5/HPF); URINE APPEARANCE CLEAR; URINE BACTERIA 0 /hpf (NEGATIVE); URINE BILIRUBIN NEGATIVE (NEGATIVE); URINE CASTS 1 /lpf (0-8); URINE COLOR YELLOW; URINE GLUCOSE (UA) NEGATIVE (NEGATIVE); URINE KETONE NEGATIVE (NEGATIVE); URINE LEUK ESTERASE NEGATIVE (NEGATIVE); URINE NITRITE NEGATIVE (NEGATIVE); URINE PROTEIN NEGATIVE (NEGATIVE); URINE RBC 2 /hpf (0-4); URINE UROBILINOGEN 0.2 mg/dL (0.2-1.0); URINE WBC 0 /hpf (0-5)
[2018-06-13 13:07] VITALS: BP 160/92; PULSE 92; TEMP 98
== END 2018-06-13 13:06 | disposition home or self-care (01) ==
LOC: JER 05:34
PROC: 0T9B70Z Drainage of Bladder with Drainage Device, Via Natural or Artificial Opening (ICD-10-PCS; principal; 2018-06-13)
DX: N40.1 Benign prostatic hyperplasia with lower urinary tract symptoms (principal); R33.8 Other retention of urine; I10 Essential (primary) hypertension; J44.9 Chronic obstructive pulmonary disease, unspecified; Z88.0 Allergy status to penicillin
CPT/HCPCS: 36415; 51702; 74176-TC; 80053; 81003; 85025; 87086; 99283-25

== ENCOUNTER 2018-10-30 08:45 | Emergency (ER) | payer OTHER ==
[2018-10-30 08:51] VITALS: TEMP 97.8; BMI 30.5
--- NOTE | 2018-10-30 09:16 | PDOC ---
History of Present Illness - General Chief Complaint: Shortness of Breath Stated Complaint: TROUBLE BREATHING Time Seen by Provider: 10/30/18 09:16 History Source: Patient Exam Limitations: No Limitations - History of Present Illness Initial Comments: 73 year old male with PMH HTN, COPD, DM presented to ED for shortness of breath since 0200 today. Pt reported increased nonproductive cough. Pt denied chest pain, palpitations, lower extremity swelling. Pt reported he recently started smoking cigarettes again x3 weeks ago after a spouse . Allergies: PCN ROS General: denied fever, chills, generalized weakness. HEENT: denied sore throat, rhinorrhea, ear pain. Cardiovascular: denied chest pain, palpitations, syncope, diaphoresis. Respiratory: admitted to shortness of breath, cough. denied sputum production, hemoptysis. Gastrointestinal: denied abdominal pain, nausea, vomiting, diarrhea, constipation, blood in stool. Genitourinary: denied dysuria, increased urinary frequency, hematuria, urinary incontinence, flank pain. Back: denied back pain. Musculoskeletal: denied joint pain, muscle pain, joint swelling. Neurological: denied headache, dizziness, numbness, tingling, weakness. Integumentary: denied rash, laceration, abrasion. Hematologic/Lymphatic: denied bruising or bleeding. PE Constitutional: Well-nourished, Well-developed, appearing stated age. actively coughing. HEENT: head is normocephalic, atraumatic. EOMI. PERRLA. Neck: supple. Full ROM. Cardiovascular: regular heart rhythm. no murmurs. no pericardial friction rub. Respiratory: bilateral wheezing throughout, poor air movement. No crackles. speaking full sentences. no stridor. trachea midline. Gastrointestinal: soft, nontender. normal bowel sounds. no rebound, guarding, masses. Extremities: peripheral pulses intact. no lower extremity edema. Neurological: CN 2-12 grossly intact. moves all four extremities. Psych: awake, alert, oriented x3. follows commands. answers questions appropriately. Past History - Past Medical History Allergies/Adverse Reactions: Allergies Allergy/AdvReac Type Severity Reaction Status Date / Time penicillin G Allergy Intermediate Verified 10/30/18 08:51 Home Medications: Ambulatory Orders Quinapril HCl [Accupril -] 20 mg PO DAILY #7 tablet 06/15/13 Diltiazem Cd [Cardizem Cd -] 240 mg PO DAILY 08/03/14 Albuterol 0.083% Nebulizer Ccei [Ventolin 0.083% Nebulizer Soln -] 1 neb NEB Q4H PRN #30 vial 10/30/18 Montelukast Na [Singulair -] 10 mg PO HS #30 tablet 10/30/18 Montelukast Sodium [Singulair] 10 mg PO HS 10/30/18 Nebulizer Accessories [Adult Aerosol Mask] 1 each QID PRN #1 each 10/30/18 Nebulizer [Compact Compressor Nebulizer] 1 each QID PRN #1 each 10/30/18 predniSONE [Deltasone -] 40 mg PO DAILY #8 tablet 10/30/18 COPD: Yes HTN: Yes Liver Disease: No - Family Disease History Family Disease History: Diabetes: Father, Heart Disease: Mother - Suicide/Smoking/Psychosocial Hx Smoking History: Current some day smoker Have you smoked in the past 12 months: Yes Number of Cigarettes Smoked Daily: 5 Information on smoking cessation initiated: No 'Breaking Loose' booklet given: 11/22/16 Hx Alcohol Use: Yes (4 BEERS A MONTH) Drug/Substance Use Hx: No Substance Use Type: Alcohol Hx Substance Use Treatment: No *Physical Exam - Vital Signs Last Vital Signs Temp Pulse Resp BP Pulse Ox 97.8 F 100 H 20 140/71 92 L 10/30/18 08:49 10/30/18 08:49 10/30/18 08:49 10/30/18 08:49 10/30/18 08:49 ED Treatment Course - LABORATORY CBC & Chemistry Diagram: 10/30/18 09:40 10/30/18 09:40 Medical Decision Making - Medical Decision Making 73 year old male with above PMH presented to ED for SOB since 0200 associated with wheezing, nonproductive cough. Initial Vital Signs Temp Pulse Resp BP Pulse Ox 97.8 F 100 H 20 140/71 92 L 10/30/18 08:49 10/30/18 08:49 10/30/18 08:49 10/30/18 08:49 10/30/18 08:49 Afebrile. Tachycardic. No tachypnea. Mild hypertension. Hypoxia on room air. -Pt satting well on NC 2L O2 EKG performed at 0946: rate 89, regular rhyuthm, left axis, LBBB. EKG comparison 12/02/16: LBBB noted. Labs ordered: CBC, CMP, troponin, VBG, coags Imaging ordered: CXR Medications ordered: Duonebx3, Solumedrol IV 10/30/18 09:58 CXR report: Name: [facility] DE[facility] OF RADIOLOGY Phys: Merrill Matosyla RESIDENT : 1945 Age: 73 Sex: M [facility] Acct: [id number] Loc: [address] Exam Date: 10/30/18 Status: REG [place] [id number] Unit Number: [id number] EXAM#: TYPE/EXAM: RESULT: [id number] RAD/CHEST X-RAY PORTABLE* Chest: Shortness of breath. A single AP view of the chest reveals clear lungs, normal mediastinum and sharp angles. The bones and soft tissues are intact. Impression : No acute pathology. No significant change since 11/22/2016 Reported By: Daniel Lang MD 10/30/18 0935 CBC WBC 12.6 K/mm3 (4.0-10.0) H 10/30/18 09:40 RBC 4.26 M/mm3 (4.00-5.60) 10/30/18 09:40 Hgb 12.4 GM/dL (11.7-16.9) 10/30/18 09:40 Hct 37.4 % (35.4-49) D 10/30/18 09:40 MCV 88.0 fl (80-96) 10/30/18 09:40 MCH 29.1 pg (25.7-33.7) 10/30/18 09:40 MCHC 33.1 g/dl (32.0-35.9) 10/30/18 09:40 RDW 15.1 % (11.9-15.9) 10/30/18 09:40 Plt Count 280 K/MM3 (134-434) 10/30/18 09:40 MPV 8.6 fl (7.5-11.1) 10/30/18 09:40 Absolute Neuts (auto) 9.5 K/mm3 (1.5-8.0) H 10/30/18 09:40 Neutrophils % 75.4 % (42.8-82.8) 10/30/18 09:40 Lymphocytes % 11.4 % (8-40) D 10/30/18 09:40 Monocytes % 10.8 % (3.8-10.2) H D 10/30/18 09:40 Eosinophils % 1.6 % (0-4.5) D 10/30/18 09:40 Basophils % 0.8 % (0-2.0) 10/30/18 09:40 Nucleated RBC % 0 % (0-0) 10/30/18 09:40 Leukocytosis with left shift. No anemia. 10/30/18 10:16 Pt reported improvement of symptoms after Duonebs. Wheezing decreased on examination. Pt now satting 95% on room air. Pt reported he does not have albuterol nebulizer at home. 10/30/18 10:18 VBG - pH normal. no CO2 retention. Pt reassessed, SpO2 95% on room air. 10/30/18 10:51 Pt reassessed, reported improvement of symptoms, SpO2 88% on room air. -Albuterol nebulizer ordered 10/30/18 12:11 Pt still hypoxic with coughing or exertion. Pt advised to be admitted for COPD exacerbation causing hypoxia. Pt refused admission, stating he had to finish his work today. Pt signed out AMA. Pt advised to return to ED for increasing SOB, wheezing. Medications sent to pharmacy: prednisone, albuterol solution, nebulizer/mask. *DC/Admit/Observation/Transfer Diagnosis at time of Disposition: COPD exacerbation, Elevated AST (SGOT) - Discharge Dispostion Disposition: AGAINST MEDICAL ADVICE Condition at time of disposition: Guarded Decision to Admit order: No - Prescriptions Prescriptions: Albuterol 0.083% Nebulizer Ceci [Ventolin 0.083% Nebulizer Soln -] 1 neb NEB Q4H PRN #30 vial PRN Reason: Asthma Montelukast Na [Singulair -] 10 mg PO HS #30 tablet Nebulizer [Compact Compressor Nebulizer] 1 each MC QID PRN #1 each PRN Reason: Asthma Nebulizer Accessories [Adult Aerosol Mask] 1 each MC QID PRN #1 each PRN Reason: Asthma predniSONE [Deltasone -] 40 mg PO DAILY #8 tablet - Referrals Referrals: Tanner Melendez MD [Staff Physician] - - Patient Instructions Printed Discharge Instructions: Aspartate Aminotransferase, Serious Ways to Stop Smoking, DI for Chronic Obstructive Pulmonary Disease Additional Instructions: One of your liver enzymes (AST) was high, have this number rechecked by your primary care doctor within 7 days. Follow up with your primary care doctor within 3 days. Your care is not complete until you follow up. Follow up with a certified breastfeeding educator within 3 days. Your care is not complete until you follow up. I have provided you with a referral for Dr. Melendez, should you need it. Take all prescribed medications as indicated on labels. Return to the Emergency Department for chest pain, increasing shortness of breath, lightheadedness, palpitations, fever, vomiting, or any other new, worsening or concerning symptoms. - Post Discharge Activity Forms/Work/School Notes: Back to Work
[2018-10-30] MEDS ORDERED: ALBUTEROL SO4 2.5/IPRATROPIUM 0.5 INH SOL 3 ML VIAL.NEB. NEB ONE ×3 (09:19→10:55)
[2018-10-30] MEDS ORDERED: methylPREDNISolone NA SUCC 125 MG/2 ML VIAL IVPUSH ONE (09:22)
[2018-10-30] MEDS ORDERED: methylPREDNISolone NA SUCC 125 MG/2 ML VIAL ONE (09:34)
--- NOTE | 2018-10-30 09:35 | PDOC ---
Attending Attestation - ED Attending Attestation I have performed the following: I have examined & evaluated the patient, The case was reviewed & discussed with the resident, I agree w/resident's findings & plan, Exceptions are as noted - HPI HPI: 10/30/18 09:44 Mr. Benavides is a 73 yo M h/o COPD (not on home O2), HTN, BPH who presents to the ER with a complaint of shortness of breath Pt awoke this morning with wheezing and shortness of breath Pt states he ran out of his Singulair, does not have duo-nebs or a nebulizer machine Pt denies chest pain or palpitations Pt denies fevers or chills Pt denies recent travel 10/30/18 10:16 - Physicial Exam PE: 10/30/18 10:17 GENERAL: The patient is in no acute distress, breathing with pursed lips ENT: Ears normal, nares patent, oropharynx clear without exudates. Moist mucous membranes. NECK: Normal range of motion, supple, no JVD LUNGS: Inspiratory and expiratory wheezing bilaterally, rhonchi HEART: Regular rate and rhythm, normal S1 and S2 without murmur, rub or gallop. ABDOMEN: Soft, nontender, normoactive bowel sounds. EXTREMITIES: Normal range of motion, no edema. NEUROLOGICAL: Cranial nerves II through XII grossly intact. Normal speech. No focal neurological deficits. SKIN: Warm, Dry, normal turgor, no rashes or lesions noted. - Medical Decision Making 10/30/18 10:18 This is a 73 yo M h/o COPD presenting with shortness of breath and wheezing No chest pain to suggest ACS No lower extremity edema to suggest CHF Pt has no fever to suggest Pneumonia, however will do CXR EKG: NSR rate of 89 bpm, LAD, RBBB 10/30/18 10:20 Laboratory Tests 10/30/18 10/30/18 09:40 09:40 WBC 12.6 H Hgb 12.4 Hct 37.4 D Plt Count 280 INR 1.04 CXR - no acute pathology 10/30/18 14:34 Laboratory Tests 10/30/18 10/30/18 09:40 09:40 BUN 16.8 Creatinine 1.0 Troponin I < 0.02 Pt has a job to do today He is adamantly refusing to stay in the ER or be admitted He understands we are very concerned about his respiratory status and his ongoing hypoxia despite neb treatments, this could result in a respiratory arrest and Note: The patient insists on leaving the emergency dept and is signing out against medical advice. The patient understands the risks and complications that may result from the refusal of medical care and admission which includes and permanent disability. The patient has the mental capacity of understanding the risks of refusing care and is capable of making an informed decision. The patient was instructed to return to the emergency department should he change his mind regarding medical care or should his condition worsen. Pt asked to call 911 if he feels difficulty breathing and return to the ER IMMEDIATELY The patient signed the Against Medical Advice form. *DC/Admit/Observation/Transfer Diagnosis at time of Disposition: COPD exacerbation, Elevated AST (SGOT) - Discharge Dispostion Disposition: AGAINST MEDICAL ADVICE Condition at time of disposition: Guarded - Prescriptions Prescriptions: Albuterol 0.083% Nebulizer Ceci [Ventolin 0.083% Nebulizer Soln -] 1 neb NEB Q4H PRN #30 vial PRN Reason: Asthma Montelukast Na [Singulair -] 10 mg PO HS #30 tablet Nebulizer [Compact Compressor Nebulizer] 1 each MC QID PRN #1 each PRN Reason: Asthma Nebulizer Accessories [Adult Aerosol Mask] 1 each MC QID PRN #1 each PRN Reason: Asthma predniSONE [Deltasone -] 40 mg PO DAILY #8 tablet - Referrals Referrals: Tanner Melendez MD [Staff Physician] - - Patient Instructions Printed Discharge Instructions: Aspartate Aminotransferase, Serious Ways to Stop Smoking, DI for Chronic Obstructive Pulmonary Disease Additional Instructions: One of your liver enzymes (AST) was high, have this number rechecked by your primary care doctor within 7 days. Follow up with your primary care doctor within 3 days. Your care is not complete until you follow up. Follow up with a implementation advisor within 3 days. Your care is not complete until you follow up. I have provided you with a referral for Dr. Melendez, should you need it. Take all prescribed medications as indicated on labels. Return to the Emergency Department for chest pain, increasing shortness of breath, lightheadedness, palpitations, fever, vomiting, or any other new, worsening or concerning symptoms. - Post Discharge Activity Forms/Work/School Notes: Back to Work
[2018-10-30] MEDS ORDERED: ONDANSETRON 4 MG/2 ML VIAL ONE (09:47)
[2018-10-30] MEDS ORDERED: ONDANSETRON 4 MG/2 ML VIAL IVPUSH ONE (09:47)
[2018-10-30 09:52] LABS: BASO % 0.8 % (0-2.0); EOS % 1.6 % (0-4.5); HEMATOCRIT 37.4 % (35.4-49); HEMOGLOBIN 12.4 GM/dL (11.7-16.9); LYMPH % 11.4 % (8-40); MCH 29.1 pg (25.7-33.7); MCHC 33.1 g/dl (32.0-35.9); MEAN PLT VOLUME 8.6 fl (7.5-11.1); MONO % 10.8 % (3.8-10.2); NEUT % 75.4 % (42.8-82.8); PLATELET COUNT 280 K/MM3 (134-434); RBC 4.26 M/mm3 (4.00-5.60); RDW 15.1 % (11.9-15.9); WHITE BLOOD COUNT 12.6 K/mm3 (4.0-10.0)
[2018-10-30 10:14] LABS: VENOUS PC02 43.4 mmHg (38-52); VENOUS PH 7.42 (7.31-7.41); VENOUS PO2 59.6 mmHg (28-48)
[2018-10-30 10:17] LABS: INR 1.04 (0.83-1.09); PROTHROMBIN TIME (PATIENT) 12.3 SEC (9.7-13.0)
[2018-10-30 10:20] LABS: ACTIVATED PTT 35.1 SECONDS (25.2-36.5)
[2018-10-30 10:28] LABS: ALBUMIN 3.4 g/dl (3.4-5.0); BILIRUBIN,TOTAL 0.6 mg/dL (0.2-1); BLOOD UREA NITROGEN 16.8 mg/dL (7-18); CALCIUM 9.1 mg/dL (8.5-10.1); TOT PROT 7.2 g/dl (6.4-8.2)
[2018-10-30 10:32] LABS: POTASSIUM 4.6 mmol/L (3.5-5.1)
[2018-10-30 10:47] LABS: ANISOCYTOSIS 1+; MACROCYTOSIS 0; PLATELET ESTIMATE NORMAL
[2018-10-30] MEDS ORDERED: ALBUTEROL SO4 0.083% IH SOL 2.5 MG/3 ML VIAL.NEB. NEB ONE ×2 (11:00→11:12)
[2018-10-30 12:04] VITALS: BP 118/54; PULSE 88
--- NOTE | 2018-10-30 14:54 | EKG ---
Test Reason : Blood Pressure : / mmHG Vent. Rate : 089 BPM Atrial Rate : 089 BPM P-R Int : 178 ms QRS Dur : 158 ms QT Int : 406 ms P-R-T Axes : 016 -64 062 degrees QTc Int : 493 ms NORMAL SINUS RHYTHM LEFT AXIS DEVIATION RIGHT BUNDLE BRANCH BLOCK ABNORMAL ECG Confirmed by MD FAIZAN, DIANA ([id number]) on 10/30/2018 2:54:44 PM Referred By: Confirmed By:DIANA GLORIA MD
== END 2018-10-30 12:22 | disposition left against medical advice (07) ==
LOC: JER 08:45
PROC: 3E0F7GC Introduction of Other Therapeutic Substance into Respiratory Tract, Via Natural or Artificial Opening (ICD-10-PCS; principal; 2018-10-30)
PROC: 3E0F7GC Introduction of Other Therapeutic Substance into Respiratory Tract, Via Natural or Artificial Opening (ICD-10-PCS; 2018-10-30)
PROC: 3E0333Z Introduction of Anti-inflammatory into Peripheral Vein, Percutaneous Approach (ICD-10-PCS; 2018-10-30)
DX: J44.1 Chronic obstructive pulmonary disease with (acute) exacerbation (principal); I10 Essential (primary) hypertension; E11.9 Type 2 diabetes mellitus without complications
CPT/HCPCS: 36415; 71045-TC-FY; 80053; 82803; 84484; 85025; 85610; 85730; 93005; 93010; 94640; 96374; 96375; 99285-25